=== PATIENT | female | born 1955 | race Caucasian/White ===

== ENCOUNTER 2019-06-18 22:18 | Emergency (ER) | payer BC ==
[2019-06-18 22:24] VITALS: RESP 18
[2019-06-18] MEDS ORDERED: MORPHINE SULFATE 4 MG/ML SYRINGE IM STA (22:30)
--- NOTE | 2019-06-18 22:48 | ED ---
General Adult HPI <Bacilio Welch - Last Filed: 06/19/19 00:38> - General Source: patient, RN notes reviewed Mode of arrival: wheelchair Limitations: no limitations <Isaiah Webster - Last Filed: 06/19/19 00:43> - General Chief complaint: Extremity Injury, Upper Stated complaint: Fall, wrist injury Time Seen by Provider: 06/18/19 22:26 - History of Present Illness Initial comments: 63-year-old female With a past medical history of umbilical hernia, back pain presents to the emergency department for right wrist pain 1 hour. Patient states that she was walking [facility] when she tripped over a crack in the pavement and fell forward onto her right wrist. An ice hitting her head. Denies any loss of consciousness. Denies any other injuries. States this fall was purely mechanical.Patient has no other complaints at this time including shortness of breath, chest pain, abdominal pain, nausea or vomiting, headache, or visual changes. (Isaiah Webster) - Related Data Home Medications Medication Instructions Recorded Confirmed ALPRAZolam [Xanax] 0.25 mg PO BID 06/18/19 06/18/19 Ergocalciferol [Vitamin D2 50,000 unit PO TU 06/18/19 06/18/19 (DRISDOL)] Ibuprofen [Advil] 200 mg PO Q6HR 06/18/19 06/18/19 Previous Rx's Medication Instructions Recorded HYDROcodone/APAP 5-325MG [[place] 1 tab PO Q6HR PRN #10 tab 06/19/19 5-325] Allergies Allergy/AdvReac Type Severity Reaction Status Date / Time latex Allergy Rash/Hives Verified 06/18/19 22:23 codeine AdvReac DIZZY Verified 06/18/19 22:23 Review of Systems ROS Other: All systems not noted in ROS Statement are negative. <Bacilio Welch - Last Filed: 06/19/19 00:38> ROS Other: All systems not noted in ROS Statement are negative. <Isaiah Webster - Last Filed: 06/19/19 00:43> ROS Statement: Those systems with pertinent positive or pertinent negative responses have been documented in the HPI. Past Medical History Past Medical History: No Reported History Additional Past Medical History / Comment(s): umbical hernia, back pain History of Any Multi-Drug Resistant Organisms: None Reported Past Surgical History: Hernia Repair, Tonsillectomy Past Anesthesia/Blood Transfusion Reactions: No Reported Reaction Past Psychological History: Anxiety Smoking Status: Former smoker Past Alcohol Use History: Occasional Past Drug Use History: None Reported - Past Family History Father Family Medical History: Myocardial Infarction (PR) Mother Family Medical History: Deep Vein Thrombosis (DVT), Pulmonary Embolus Brother(s) Family Medical History: Cancer <Isaiah Webster P - Last Filed: 06/19/19 00:43> General Exam General appearance: alert, in no apparent distress Head exam: Present: atraumatic, normocephalic, normal inspection Eye exam: Present: normal appearance, PERRL, EOMI. Absent: scleral icterus, conjunctival injection, periorbital swelling ENT exam: Present: normal exam, mucous membranes moist Neck exam: Present: normal inspection. Absent: tenderness, meningismus, lymphadenopathy Respiratory exam: Present: normal lung sounds bilaterally. Absent: respiratory distress, wheezes, rales, rhonchi, stridor Cardiovascular Exam: Present: regular rate, normal rhythm, normal heart sounds. Absent: systolic murmur, diastolic murmur, rubs, gallop, clicks GI/Abdominal exam: Present: soft, normal bowel sounds. Absent: distended, tenderness, guarding, rebound, rigid Extremities exam: Present: normal inspection, full ROM, normal capillary refill. Absent: tenderness, pedal edema, joint swelling, calf tenderness Back exam: Present: normal inspection Neurological exam: Present: alert, oriented X3, CN II-XII intact Psychiatric exam: Present: normal affect, normal mood Skin exam: Present: warm, dry, intact, normal color. Absent: rash <Bacilio Welch - Last Filed: 06/19/19 00:38> Limitations: no limitations General appearance: alert, in no apparent distress Head exam: Present: atraumatic, normocephalic, normal inspection Eye exam: Present: normal appearance, PERRL, EOMI. Absent: scleral icterus, conjunctival injection, periorbital swelling ENT exam: Present: normal exam, mucous membranes moist Neck exam: Present: normal inspection, full ROM. Absent: tenderness, meningismus, lymphadenopathy Respiratory exam: Present: normal lung sounds bilaterally. Absent: respiratory distress, wheezes, rales, rhonchi, stridor Cardiovascular Exam: Present: regular rate, normal rhythm, normal heart sounds. Absent: systolic murmur, diastolic murmur, rubs, gallop, clicks Extremities exam: Present: tenderness (Generalized tenderness to the right wrist), normal capillary refill (Deep refill less than 2 seconds, radial pulse 2+ in the right upper extremity), other (Mild deformity noted of the right wrist). Absent: full ROM (Patient unable to fully flex or extend right wrist due to pain. She does have intact flexor and extensor mechanisms of all digits of the right hand however these are limited due to pain), pedal edema, joint swelling, calf tenderness Neurological exam: Present: alert, oriented X3, CN II-XII intact Psychiatric exam: Present: normal affect, normal mood <Isaiah Webster - Last Filed: 06/19/19 00:43> - General Exam Comments Initial Comments: R wrist deformity (Bacilio Welch) Course Vital Signs 06/18/19 22:21 Temperature 98.6 F Pulse Rate 81 Respiratory 18 Rate Blood Pressure 142/90 O2 Sat by Pulse 93 L Oximetry Procedures - Nerve Block Consent Obtained: verbal consent Local Anesthetic Used: Lidocaine 1% Side: right Nerve Blocks: hematoma block Procedure Successful: Yes Complications: none Patient Tolerated Procedure: well - Orthopedic Fracture Reduction Fracture #1 Consent Obtained: verbal consent Side: right Fracture Reduction Location: radius Analgesia: hematoma block Technique: direct manipulation, traction/counter-traction Post-Reduction Neuro Exam: intact Post-Reduction Vascular Exam: intact Splint Applied: Yes Patient Tolerated Procedure: well <Bacilio Welch - Last Filed: 06/19/19 00:38> - Orthopedic Splinting/Casting Injury #1 Side: right Upper Extremity Injury Location: short arm Upper Extremity Immobilizer: posterior splint, volar splint <Isaiah Webster - Last Filed: 06/19/19 00:43> - Orthopedic Splinting/Casting Injury #1 Additional Comments: NV intact after splint applied (Isaiah Webster) Medical Decision Making <Isaiah Webster - Last Filed: 06/19/19 00:43> - Medical Decision Making 63-year-old female with a past medical history of umbilical hernia, back pain presents to the emergency department for a chief complaint of right wrist pain after a trip and fall. On exam neurovascular status intact in the right wrist. However there is deformity noted. X-ray of the right wrist shows an acute fracture of the distal metaphysis of the radius with possible intra-articular extension. There is dorsal angulation of the distal fracture fragment. Hematoma block was performed by Dr Welch and wrist was successfully reduced using traction countertraction. AP x-ray was obtained. Patient was splinted in a volar and dorsal plant. Patient given orthopedic follow-up and pain medication. Patient will return if she has any worsening symptoms. (Isaiah Webster) Disposition <Bacilio Welch - Last Filed: 06/19/19 00:38> Is patient prescribed a controlled substance at d/c from ED?: Yes When asked, does pt state using other controlled substances?: No If prescribed controlled substance>3 days was MAPS reviewed?: Prescribed <3 Days If opioid is for acute pain is fill amount 7 days or less?: Yes If Rx opioid, was Start Talking consent form obtained?: Yes Time of Disposition: 00:41 <Isaiah Webster - Last Filed: 06/19/19 00:43> Clinical Impression: Distal radial fracture Disposition: HOME SELF-CARE Condition: Good Instructions (If sedation given, give patient instructions): Wrist Fracture in Adults (ED) Additional Instructions: Please take P[place]ling for pain and do not drive or operate machinery while taking Pawling. Please follow-up with orthopedics in one to 2 days. Return to the emergency department if you have any worsening symptoms. Prescriptions: HYDROcodone/APAP 5-325MG [[place] 5-325] 1 tab PO Q6HR PRN #10 tab PRN Reason: Pain Referrals: Conor Trent MD [Primary Care Provider] - 1-2 days Bishop Matute DO [Doctor of Osteopathic Medicine] - 1-2 days
--- NOTE | 2019-06-18 22:51 | XR ---
EXAM: XR Right Wrist Complete, 3 or More Views CLINICAL HISTORY: Pain TECHNIQUE: Frontal, lateral and oblique views of the right wrist. COMPARISON: No relevant prior studies available. FINDINGS: Bones/joints: Acute fracture of the distal metaphysis of the radius with possible intra-articular extension. There is dorsal angulation of the distal fracture fragment. Soft tissues: Mild soft tissue swelling of fracture. No radiopaque foreign body. IMPRESSION: Acute fracture of the distal metaphysis of the radius with possible intra-articular extension. There is dorsal angulation of the distal fracture fragment.
[2019-06-18] MEDS ORDERED: LIDOCAINE 1% INJ 10MG/ML (20 ML MDV) SQ ONE (23:28)
[2019-06-18] MEDS ORDERED: LORazepam 1 MG TAB PO STA (23:33)
[2019-06-19] MEDS ORDERED: MORPHINE SULFATE 4 MG/ML SYRINGE IM STA (00:55)
[2019-06-19 01:12] VITALS: BP 136/86; PULSE 74; TEMP 99.4
--- NOTE | 2019-06-19 02:44 | XR ---
EXAM: XR Right Wrist, 2 Views CLINICAL HISTORY: Pain TECHNIQUE: Frontal and lateral views of the right wrist. COMPARISON: No relevant prior studies available. FINDINGS: Bones/joints: Again seen is a fracture of the metaphysis of the distal radius with mild dorsal angulation of the distal fracture fragment. No dislocation. Soft tissues: Unremarkable. No radiopaque foreign body. Other findings: Overlying casting material is noted. IMPRESSION: Again seen is a fracture of the metaphysis of the distal radius with mild dorsal angulation of the distal fracture fragment.
== END 2019-06-19 01:31 | disposition home or self-care (01) ==
LOC: EC 22:18
DX: S59.201A Unspecified physeal fracture of lower end of radius, right arm, initial encounter for closed fracture (principal); F41.9 Anxiety disorder, unspecified; Z87.891 Personal history of nicotine dependence; Z79.899 Other long term (current) drug therapy; Z88.5 Allergy status to narcotic agent; Z91.040 Latex allergy status; W01.0XXA Fall on same level from slipping, tripping and stumbling without subsequent striking against object, initial encounter; Y93.01 Activity, walking, marching and hiking; Y92.481 Parking lot as the place of occurrence of the external cause
CPT/HCPCS: 73110; 99283; 25605; J2270; J2001

== ENCOUNTER → 2019-06-21 | Outpatient (CLI) | payer BC ==
[2019-06-21 14:40] LABS: Basophils % (A) 0 %; Eosinophils % (A) 0 %; HCT 45.6 % (34.0-46.0); HGB 14.8 gm/dL (11.4-16.0); Lymphocytes # (A) 1.9 k/uL (1.0-4.8); Lymphocytes % (A) 21 %; MCH 29.9 pg (25.0-35.0); MCHC 32.6 g/dL (31.0-37.0); MCV 91.7 fL (80.0-100.0); Mean Platelet Volume 8.4; Monocytes # (A) 0.4 k/uL (0-1.0); Monocytes % (A) 4 %; Neutrophils # (A) 6.5 k/uL (1.3-7.7); Neutrophils % (A) 73 %; Platelet Count 236 k/uL (150-450); RBC 4.97 m/uL (3.80-5.40); RDW 12.9 % (11.5-15.5); WBC 8.9 k/uL (3.8-10.6)
== END | disposition home or self-care (01) ==
LOC: LABPAT 14:01
PROVIDERS: ATTEND Orthopaedic Surgery
DX: Z01.818 Encounter for other preprocedural examination (principal); Z01.812 Encounter for preprocedural laboratory examination; S52.501D Unspecified fracture of the lower end of right radius, subsequent encounter for closed fracture with routine healing
CPT/HCPCS: 36415; 80051; 85025; 93005

== ENCOUNTER 2019-06-24 11:32 | Day surgery (SDC) | payer BC ==
--- NOTE | 2019-06-23 12:07 | HP ---
HISTORY AND PHYSICAL REASON FOR ADMISSION: Surgery is scheduled for 06/24/2019. Mireya Blanc is a 63-year-old patient seen with a displaced right distal radius fracture. Recommended open reduction and internal fixation. I reviewed the procedure, risks, complications, benefits, recovery, patient was agreeable. Consent was obtained. PAST MEDICAL HISTORY: Anxiety. PAST SURGICAL HISTORY: Herniorrhaphy. MEDICATIONS: Xanax. ALLERGIES: CODEINE. SOCIAL HISTORY: She denies current tobacco use. PHYSICAL EXAMINATION: Physical evaluation of the right wrist, there is some moderate swelling. Tenderness about the distal radius with some early ecchymosis. No open wounds. She is able to move her fingers with some discomfort. Her distal neurovascular exam is intact. RADIOGRAPHS: Radiographs of the right wrist revealed a displaced distal radius fracture with possible intra-articular extension. IMPRESSION: Displaced right distal radius fracture. PLAN: Open reduction, internal fixation, right distal radius fracture. Surgery 06/24/2019. MMODL / IJN: [id number] /
[2019-06-24] MEDS ORDERED: DEXAMETHASONE SOD PHOSPHATE 10 MG/ML 1 ML VIAL IV ONE (11:44)
[2019-06-24] MEDS ORDERED: MIDAZOLAM 2 MG/2 ML VIAL IV PRN (11:44)
[2019-06-24] MEDS ORDERED: ONDANSETRON 4 MG/2 ML VIAL IVP ONE (11:44)
[2019-06-24 11:50] VITALS: BMI 23.4
[2019-06-24] MEDS ORDERED: LIDOCAINE 1% 20 ML VIAL (10MG/ML) FOR IV START INTRADERMA ONE (12:11)
[2019-06-24] MEDS: LACTATED RINGERS 1,000 ML IV SCH (12:11)
[2019-06-24] MEDS ORDERED: MIDAZOLAM 2 MG/2 ML VIAL ONE (12:53)
[2019-06-24] MEDS ORDERED: LIDOCAINE 1% INJ 10MG/ML (20 ML MDV) ONE (12:53)
[2019-06-24] MEDS ORDERED: fentaNYL (PF) 50 MCG/ML 2 ML AMP ONE (12:53)
[2019-06-24] MEDS ORDERED: PROPOFOL 10 MG/ML 20 ML VIAL IV ONE (12:53)
[2019-06-24] MEDS ORDERED: ePHEDrine SULFATE/0.9% NACL/PF 50 MG/5 ML SYRINGE IV ONE (12:53)
[2019-06-24] MEDS ORDERED: BUPIVACAINE (PF) 0.5% 30 ML VIAL SQ ONE ×2 (13:21→14:00)
[2019-06-24] MEDS ORDERED: HYDROmorphone 0.5 MG/0.5 ML SYRINGE IVP PRN ×2 (14:07)
[2019-06-24] MEDS ORDERED: ONDANSETRON 4 MG/2 ML VIAL IVP PRN (14:07)
[2019-06-24] MEDS ORDERED: HYDROcodone/APAP 5-325MG 1 EACH TAB PO PRN (14:09)
[2019-06-24] MEDS ORDERED: ALPRAZolam 0.5 MG TAB PO PRN (14:11)
--- NOTE | 2019-06-24 14:14 | P.OP ---
Date of Procedure: 06/24/19 Preoperative Diagnosis: Comminuted/displaced right distal radius fracture Postoperative Diagnosis: Same Procedure(s) Performed: Open reduction and internal fixation right distal radius fracture Implants: Synthes distal volar wrist plate right/narrow with 4 appropriate length distal smooth locking pegs and 2 appropriately proximal 2.7 mm screws Anesthesia: ANA LAURA, local Surgeon: Bishop Matute Lead Miner #1: Francesco Coles Estimated Blood Loss (ml): 10 Pathology: none sent Condition: stable Disposition: PACU Indications for Procedure: 63-year-old patient seen with a displaced/comminuted right distal radius fracture. I recommended open reduction and internal fixation. I discussed the procedure, risks, complications and recovery. Patient was agreeable and consent was obtained. Operative Findings: See description of procedure Description of Procedure: The patient was taken to the operative suite. The patient underwent a general anesthetic by the department of anesthesia. The patient received preoperative IV antibiotics. A well-padded tourniquet placed proximal right upper extremity. The right upper extremity was prepped and draped in the normal sterile orthopedic fashion. The extremity was elevated and tourniquet insufflated to 250. A volar incision was made along the distal radius sharply through skin. Careful blunt dissection down the fracture. Periosteal elevation was utilized to define the fracture. It was comminuted and displaced. Blunt retractors were utilized. The fracture was reduced with the assistance Beny JENKINS. I preliminary placed an appropriate size distal volar wrist plate and secured it with one proximal screw. C-arm was brought in confirming adequate alignment of both the fracture and the plate. With the assistance of Beny JENKINS holding the fracture adequately aligned I now drilled appropriate distal holes for insertion of our distal pegs. Appropriate length locking pegs were inserted with good securement of all 4 locking pegs. I now made an additional drill hole for our final proximal locking screw and an appropriate length 2.7 mm screws inserted with good fixation noted. The C-arm was brought back into the operative field noting adequate alignment of both the fracture and hardware. Spot films were obtained document this. There was irrigated. We had good hemostasis. The skin margins are approximate suture. Sterile dressings were applied. The tourniquet was released and immediate capillary refill of all digits noted. An appropriate volar wrist was now applied and the patient was aw akened, transferred to a bed and recovery stable condition. Beny JENKINS assisted procedure.
[2019-06-24] MEDS: HYDROmorphone 0.5 MG/0.5 ML SYRINGE IVP PRN ×2 (14:20→14:44)
[2019-06-24] MEDS ORDERED: diphenhydrAMINE 50 MG/ML 1 ML VIAL IVP ONE (14:20)
--- NOTE | 2019-06-24 15:28 | FL ---
Fluoroscopy HISTORY: Radius fracture 6 seconds fluoroscopy time supplied to the referring clinician. 2 intraoperative C-arm images docume nt the procedure. See dictated report from orthopedic surgery.
--- NOTE | 2019-06-24 15:29 | XR ---
Limited right wrist HISTORY: Fracture 2 intraoperative C-arm images document the procedure.
[2019-06-24] MEDS: HYDROcodone/APAP 5-325MG 1 EACH TAB PO PRN (21:30)
[2019-06-25] MEDS: HYDROcodone/APAP 5-325MG 1 EACH TAB PO PRN ×2 (05:52→11:06)
[2019-06-25] MEDS: LACTATED RINGERS 1,000 ML IV SCH (07:39)
[2019-06-25 07:45] VITALS: RESP 18
[2019-06-25 09:16] VITALS: BP 135/85; PULSE 65; TEMP 97.6
--- NOTE | 2019-06-25 10:47 | P.PN ---
Subjective Progress Note Date: 06/25/19 Principal diagnosis: Status post ORIF right distal radius fracture Patient evaluated at bedside, she is resting comfortably. Pain is well- controlled. Common some swelling in the hand. Denies any chest pain or shortness of breath. Objective - Vital Signs Vital signs: Vital Signs Temp 97.6 F 06/25/19 07:00 Pulse 65 06/25/19 07:00 Resp 18 06/25/19 07:15 BP 135/85 06/25/19 07:00 Pulse Ox 96 06/25/19 07:00 Intake & Output 06/24/19 06/25/19 06/25/19 18:59 06:59 18:59 Intake Total 1630 1080 Output Total 10 Balance 1620 1080 Weight 70 kg Intake: IV 1150 Oral 480 1080 Output: Estimated Blood Loss 10 Other: Voiding Method Toilet # Voids 2 - Exam Right upper extremity: Postop splint is in good position and condition. Sensory exam to proximal distal to the splint intact. She is able to wiggle the fingers minimal difficulty. Cap refills less than 2 seconds. Assessment and Plan Plan: Assessment: Postoperative day #1 status post ORIF right distal radius fracture Plan: Pain control, plan to discharge home on oral medications Wound care and cast management were discussed Icing and elevating techniques discuss Plan for follow-up in 2 weeks Time with Patient: Less than 30
--- NOTE | 2019-06-25 10:49 | P.DS ---
Providers Date of admission: 06/24/2019 Expected date of discharge: 06/25/19 Attending physician: Bishop Matute Primary care physician: Conor Trent Hospital Course: Date of admission: 06/24/2019 Date of discharge: 06/25/2019 Admission diagnosis: Status post ORIF right distal radius fracture Discharge diagnosis: Same Attending physician: Dr. Matute Surgical procedures: ORIF right distal radius fracture Brief history: Patient is a 63-year-old female was evaluated in the outpatient setting for a right wrist injury. She had a displaced comminuted right distal radius fracture. She was scheduled for a open reduction internal fixation procedure with Dr. Matute on 06/24/2019. Hospital course: Details of patient's surgery can be found in operative report. Patient tolerated the procedure well and was subsequently transported to orthopedic floor. Patient's orthopeidc and medical care was provided daily. Patient reported satisfactory pain control with oral pain medications by postoperative day 0. Patient moved steadily through the program and had no difficulty meeting the goals by postoperative day 1. Given patient's otherwise satisfactory course and having met physical therapy goals, plan is to discharge patient home on postoperative day 1. Discharge condition/disposition: Patient will be discharged home in stable condition. Discharge medications: Instructions are given on resumption of patient's normal daily medications per primary care recommendation, in addition patient will be prescribed [place] 5 mg/325 mg. Discharge instructions: 1. Pain medication as needed 2. Do not remove splint, keep covered while showering 3. Avoid excessive use of the right upper extremity 4. Plan for follow-up in 2 weeks Procedures: Open reduction internal fixation right distal radius fracture Patient Condition at Discharge: Good Plan - Discharge Summary Discharge Rx Participant: Yes New Discharge Prescriptions: New Hydrocodone/Acetaminophen [[place] 5-325] 1 each PO Q6HR PRN #21 tab PRN Reason: Pain No Action Ibuprofen [Advil] 200 mg PO Q6HR ALPRAZolam [Xanax] 0.5 mg PO BID Ergocalciferol [Vitamin D2 (DRISDOL)] 50,000 unit PO TU HYDROcodone/APAP 5-325MG [[place] 5-325] 1 tab PO Q6HR PRN #10 tab PRN Reason: Pain Discharge Medication List ALPRAZolam [Xanax] 0.5 mg PO BID 06/18/19 [History] Ergocalciferol [Vitamin D2 (DRISDOL)] 50,000 unit PO TU 06/18/19 [History] Ibuprofen [Advil] 200 mg PO Q6HR 06/18/19 [History] HYDROcodone/APAP 5-325MG [[place] 5-325] 1 tab PO Q6HR PRN #10 tab 06/19/19 [Rx] Hydrocodone/Acetaminophen [[place] 5-325] 1 each PO Q6HR PRN #21 tab 06/25/19 [Rx] Follow up Appointment(s)/Referral(s): Francesco Coles PAC [PHYSICIAN DRILL RUNNER HELPER] - 2 Weeks Activity/Diet/Wound Care/Special Instructions: Orthopedic discharge instructions: 1. Pain medication as needed 2. Keep splint clean and dry, keep covered while showering 3. Avoid excess use of the right upper extremity 4. Plan [facility] 2 weeks Discharge Disposition: HOME SELF-CARE
== END 2019-06-25 12:04 | disposition home or self-care (01) ==
LOC: OR 11:32 → 4SSUR 14:04 → OR 06-25 12:04
PROVIDERS: ATTEND Orthopaedic Surgery
DX: S52.501A Unspecified fracture of the lower end of right radius, initial encounter for closed fracture (principal); X58.XXXA Exposure to other specified factors, initial encounter; F41.9 Anxiety disorder, unspecified; Z79.899 Other long term (current) drug therapy; Z79.1 Long term (current) use of non-steroidal anti-inflammatories (NSAID); Z79.891 Long term (current) use of opiate analgesic; Z88.5 Allergy status to narcotic agent; Z91.040 Latex allergy status
CPT/HCPCS: 25607; 73100; C1713; J2250; J1200; J1100; J0690 ×2; J2405; J2001; J3010; J2704; J1170

== ENCOUNTER → 2019-09-27 | Outpatient (CLI) | payer BC ==
--- NOTE | 2019-09-27 12:09 | XR ---
EXAMINATION TYPE: XR wrist limited RT DATE OF EXAM: 09/27/2019 CLINICAL HISTORY: Distal right radial fracture, surgical fixation on 729. Progress exam. TECHNIQUE: Frontal, lateral and oblique images of the right wrist are obtained. Scaphoid view was al so obtained. COMPARISON: None FINDINGS: There is diffuse osseous demineralization. There is surgical fixation of a distal right rad ial fracture, appearing anatomically aligned. The primary fracture site is no longer visible and ther e is cortical bridging is subtle periosteal reaction in the distal radioulnar joint. Mild degenerativ e changes of the first carpometacarpal joint with osseous proliferation and joint space narrowing. No additional new fracture is seen. Soft tissue swelling has resolved. There is slight widening of the distal radioulnar joint. IMPRESSION: Healed right distal radial fracture, surgically fixated. Slight widening of the distal ra dioulnar joint. Diffuse osseous demineralization and mild degenerative changes of the first carpal me tacarpal joint.
== END ==
LOC: RADXRMAIN 11:38
PROVIDERS: ATTEND Orthopaedic Surgery
DX: S52.501D Unspecified fracture of the lower end of right radius, subsequent encounter for closed fracture with routine healing (principal); M25.831 Other specified joint disorders, right wrist; M81.0 Age-related osteoporosis without current pathological fracture; M18.9 Osteoarthritis of first carpometacarpal joint, unspecified